=== PATIENT | female | born 1985 | race Caucasian/White ===

== ENCOUNTER → 2016-06-17 15:09 | Emergency (ER) | payer OTHER ==
[~2016-06-17 15:09] MED LIST: ADVAIR 2501 DISK W/D PO; ALBUTEROL17 GM INH; AMOXIL500 MG PO; BACTRIM DS TABL1 TA1 PO; BACTRIM DS TABL1 TAB PO; CIPRO PO; COLACE PO; FLEXERIL10 MG PO; HYCODAN60 ML 5MG/ PO; KEFLEX500 MG PO; LIDOCAINE VISCOU1 ML EXT; LIDODERM30 EA TOP; MACROBID100 MG PO; NEURONTIN PO; ORUDIS75 M1 PO; PARAFON FORTE500 MG PO; PHENERGAN PO; PHENERGAN25 MG PO; PRENATAL1 TA1 PO; PRILOSEC PO; PRINCIPEN500 M1 PO; PROVENTIL17 GM IH; PROZAC40 MG PO; PYRIDIUM PO; ULTRAM PO; VIBRAMYCIN100 M1 PO; VOLTAREN50 MG PO; VOLTAREN75 MG PO; ZANTAC150 MG PO; ZANTAC300 MG PO; ZITHROMAX1 G/PKT PO; ZOFRAN PO; ZOFRAN8 MG PO
== END | disposition left against medical advice (07) ==
LOC: CED 15:09
DX: Z53.21 Procedure and treatment not carried out due to patient leaving prior to being seen by health care provider (principal)

== ENCOUNTER 2016-09-20 15:20 | Emergency (ER) | payer OTHER | END 2016-09-20 16:33 | disposition home or self-care (01) | LOC: CED 15:20 | DX: G40.909 Epilepsy, unspecified, not intractable, without status epilepticus (principal); J45.909 Unspecified asthma, uncomplicated; F17.200 Nicotine dependence, unspecified, uncomplicated; Z91.040 Latex allergy status; Z88.8 Allergy status to other drugs, medicaments and biological substances | CPT/HCPCS: 99284 ==

== ENCOUNTER 2016-10-16 13:25 | Inpatient (IN) | payer OTHER ==
--- NOTE | ~2016-10-16 | A ---
[facility] Nutrition Therapy DATE: 10/17/16 Patient: ELAINE OATES Physician: INES Address: HOMELESS PER PT Room/Bed: [address], Zip: [place] [address] Admit Date: 10/16/16 Date of : [birth year] Height: 5 6 Weight: 132 59.87 NUTRITIONAL ASSESSMENT: REASON: NPO IN ICU ASSESSMENT PT IS 31 Y.O. FEMALE ADMITTED FOR FOUND DOWN AFTER HEROIN ABUSE. ?GI BLEED, ACUTE RESPIRATORY FAILURE, ASPIRATION PNA PMH: ETOH ABUSE, DRUG ABUSE, HEPATITIS C, SEIZURE DISORDER Anthropometrics: 5'6", WT: 132# (60 KG), BMI: 21.3, 101%IBW Labs: GLU: 155, BUN: 32, CREAT: 1.9, CA+:6.1, ALB: 2.4, AST: 258, ALT: 127 Meds: LEVOPHED, PROTONIX, NACL, D5% I/O & Bowel function: 2665/795 Skin Integrity: NG TUBE TO LWS, NO SKIN ISSUES Estimated Nutrition Needs: 3339-2584 KCAL (25-30 KCAL/KG BW) 72-90 G PRO (1.2-1.5 G PRO/ KG BW) FLUIDS CONSISTENT W/KCAL NEEDS OR MANAGE PER MD Assessment: CHART REVIEWED AND EVENTS NOTED. PT SEEN FOR NPO IN ICU ASSESSMENT. PT CURRENTLY INTUBATED AT TIME OF VISIT. NO FAMILY IN ROOM AT THIS TIME. PER RN AND CHART, PT FOUND DOWN AT HOME UNRESPONSIVE. NO CURRENT PLANS IN PLACE TO BEGIN ALTERNATIVE NUTRITION SUPPORT AT THIS TIME. PER CHART, ?ANOXIC BRAIN INJURY, POOR PROGNOSIS NOTED. RD TO REMAIN AVAILABLE. PT NOT APPROPRIATE FOR DIET EDUCATION AT THIS VISIT. Dx: INADEQUATE ORAL INTAKE R/T CURRENT DIAGNOSIS, VENT DEPENDENCE AEB NPO STATUS. Intervention: 1. NPO Monitoring, Evaluation and Goals: 1. ENTERAL NUTRITION; ONCE INITIATED, PROVIDE >80% TOTAL VOLUME AT GOAL 2. WEIGHTS; PROMOTE WEIGHT MAINTENANCE 3. LABS; WNL 4. GI; PROMOTE REGULAR GI FUNCTION MONITOR: -WEIGHTS -PLANS FOR SUPPORT [facility] Nutrition Therapy DATE: 10/17/16 Patient: ELAINE OATES Physician: INES Address: HOMELESS PER PT Room/Bed: [address], Zip: [place] [address] Admit Date: 10/16/16 Date of : [birth year] Height: 5 6 Weight: 132 59.87 -LABS -EXTUBATION? Recommendations: 1. ONCE MEDICALLY FEASIBLE AND PT EXTUBATED, ADVANCE DIET PER PROJECT ANALYST + REGULAR DIET 2. IF PT REMAINS INTUBATED >24 HOURS, BEGIN ALTERNATIVE NUTRITION SUPPORT OF JEVITY 1.5 @ 20 ML/HR, ADVANCE 10 ML q 6 HOURS TO GOAL RATE OF 50 ML/HR -PROVIDES 1800 KCAL, 77 G PRO, 912 ML FREE H20 ADD FREE H20 FLUSHES OF 220 ML QID TO MEET PT'S CURRENT ESTIMATED FLUID NEEDS PER MD RD WILL F/U PER PROTOCOL PT IS SEVERELY COMPROMISED Respectfully, REESE MCKEON MS, RD, LD Food and Nutritional Services [facility] cc: client file
--- NOTE | ~2016-10-16 | DS ---
Unit #: [id number] #: [id number] Patient: ELAINE OATES [id number] [address] [address] [id number] I MR#: [id number] NAME: ELAINE OATES ROOM: [facility] Age: 31 Sex: F Admission Date: 10/16/2016 : 1985 Discharge Date: 10/18/2016 Attending Physician: Sharad Cali M.D. Primary Care Physician: No Primary Care Physician DISCHARGE SUMMARY SUMMARY DATE OF 10/17/2016 TIME OF 22:47 PRIMARY DIAGNOSIS Resuscitated cardiac arrest, found asystole by EMS team. SECONDARY DIAGNOSES 1. Apparent opiate overdose with IV heroin. 2. Septic shock. 3. Acute hypoxic respiratory failure. 4. Severe anoxic brain injury. 5. Non ST segment elevation myocardial infarction. 6. Hepatitis C. 7. Shock liver. 8. Aspiration pneumonia. 9. Urinary tract infection. 10. Anemia. HOSPITAL COURSE The patient was brought into the hospital after being resuscitated by EMS when being found down in asystole. Patient was placed on pressors and intubated and initial CT scan showed diffuse cerebral edema consistent with severe anoxic brain injury. Patient continued to require norepinephrine drip to keep pressures up and ventilator support for hypoxemic respiratory failure. Was treated with broad spectrum antibiotics. Due to the patient's extremely poor prognosis, due to her neurologic exam, and CT of the brain findings recommendation was made to family for comfort care. The patient was terminally extubated on the evening of 10/17/2016 and was pronounced shortly thereafter. Dictated by... Sharad Cali M.D. GEMMA/kemal TD: 10/19/2016 11:13 Unit #: [id number] #: [id number] Patient: ELAINE OATES JOB #: [id number] DISCHARGE SUMMARY Page 1 of 1 X Sharad Cali MD X DISCHARGE SUMMARY
--- NOTE | ~2016-10-16 | EKG ---
PATIENT: ELAINE OATES UNIT #: [id number] Ventricular Rate: 67 BPM Atrial Rate: 67 BPM P-R Interval: 168 ms QRS Duration: 98 ms Q-T Interval: 518 ms QTC Calculation(Bezet): 547 ms P Durant: 58 degrees Calculated R Durant: 59 degrees Calculated T Durant: 51 degrees Diagnosis Line: Normal sinus rhythm Diagnosis Line: Nonspecific ST abnormality Diagnosis Line: Prolonged QT Diagnosis Line: Abnormal ECG Diagnosis Line: When compared with ECG of 25-JUL-2011 23:39, Diagnosis Line: ST now depressed in Anterior leads Diagnosis Line: T wave inversion no longer evident in Inferior Diagnosis Line: leads Diagnosis Line: QT has lengthened Diagnosis Line: Confirmed by CHAPARRO LEYVA MD ([id number]) on Diagnosis Line: 10/17/2016 11:07:12 AM INTERPRETING MD: OGRDON QUIÑONEZ
--- NOTE | ~2016-10-16 | CT71 ---
[facility] A Service of [facility] RADIOLOGY TEXT RESULTS PATIENT: ELAINE OATES [facility] [birth year] UNIT #: [id number] AGE: [address]: Sharad Cali MD SEX: F ORDER DR: [id number] [facility] [address] [facility]. [place], [place] [address] [id number] MR#: [id number] Acc #: [id number] NAME: ELAINE OATES. : 1985 SEX: F STUDY DATE/TIME: 10/16/2016 15:39 UNIT: EDIL ROOM: STUDY DESCRIPTION: CT Head Wo Contrast Attending Physician: Merlin Murphy M.D. Ordering Physician: Merlin Murphy M.D. Primary Care Physician: No Primary Care Physician MEDICAL IMAGING REPORT This report is preliminary unless electronic signature is present REVISED REPORT EXAM Head CT without contrast 10/16/2016 HISTORY Patient found down at restaurant after heroin use. Full cardiac arrest, en route to ER today. TECHNIQUE This CT exam was performed with one or more of the following radiation dose reduction techniques: automatic exposure control, adjustment of mA and/or kV according to patient size, and iterative reconstruction. FINDINGS Examination is markedly abnormal. Exam is somewhat limited by patient motion, with resulting artifact. There is diffuse decreased density throughout both cerebral hemispheres with poor ordonez-white junction differentiation characteristic of diffuse brain edema from anoxic brain injury. Findings were immediately called to the ordering clinician at 04:10 p.m. on 10/16/2016. There is no midline shift. No mass is seen. No intra- or extraaxial hemorrhage. Fluid and/or mucosal thickening is seen in the maxillary and ethmoid sinuses. IMPRESSION 1. Markedly abnormal examination demonstrating a decrease in ordonez-white junction differentiation with poor visualization of the sulci, characteristic of diffuse brain edema, presumably due to anoxic brain injury. Clinical correlation is recommended. No midline shift. No intra- or extraaxial fluid collections. 2. Maxillary and ethmoid sinusitis. [facility] A Service of [facility] RADIOLOGY TEXT RESULTS PATIENT: ELAINE OTAES LOCATION: [address] : [birth year] UNIT #: [id number] AGE: [address]: Sharad Cali MD SEX: F ORDER DR: STAT * RESULT Dictated by... Dank Oliva M.D. THIS IS AN ELECTRONICALLY VERIFIED REPORT Dank Oliva M.D. at 10/17/2016 3:43 PM MADDIE/titus TD: 10/16/2016 16:20 JOB #: [id number] CC: Elizabeth/les Please Delete MEDICAL IMAGING REPORT Page 1 of 1 COPY
--- NOTE | ~2016-10-16 | CO ---
Unit #: [id number] #: [id number] Patient: ELAINE OATES [id number] [address] [address] [id number] I MR#: [id number] NAME: ELAINE OATES. ROOM: [facility] Age: 31 Sex: F Admission Date: 10/16/2016 : 1985 Attending Physician: Jose Victoria M.D. Primary Care Physician: No Primary Care Physician CONSULTATION REPORT REASON FOR CONSULTATION Critical care management. CHIEF COMPLAINT 31-year-old female with a past medical history of hepatitis C, drug abuse, found unresponsive, brought in to the emergency room and was given Narcan and two doses of epinephrine and CPR. Patient is currently unresponsive, on a ventilator on high ventilator setting. PAST MEDICAL HISTORY 1. Hepatitis C. 2. Drug overdose. REVIEW OF SYSTEMS Unobtainable. SOCIAL HISTORY Substance abuse, smoker. FAMILY HISTORY Unobtainable. HOME MEDICATIONS Unobtainable. ALLERGIES Clonidine and latex. PHYSICAL EXAMINATION VITAL SIGNS: Temperature 96, pulse 79, respirations 16, blood pressure 110/70. NEUROLOGICAL: Unresponsive. CVS: S1+ S2. RESPIRATIONS: Bilateral mild rhonchi. GI: Nontender, soft. Bowel sounds positive. EXTREMITIES: No edema. DIAGNOSTIC STUDIES IMAGING: CT head shows diffuse anoxic brain injury. LABORATORY: All the labs have been reviewed. ASSESSMENT AND PLAN 1. Acute respiratory failure. Unit #: [id number] #: [id number] Patient: ELAINE OATES 2. Drug overdose. 3. Cardiopulmonary arrest. 4. Shock. 5. Likely aspiration pneumonia. Plan is to admit the patient. Continue current treatment. Prognosis is very poor. Neurology and cardiology consultation recommended. 2D echo, troponin and continue IV fluids. Again, prognosis is very poor. Dictated by... Jade Mayer/fito TD: 10/17/2016 05:27 JOB #: [id number] CONSULTATION REPORT Page 1 of 1 X Roberto Sanders MD CONSULTATION REPORT
--- NOTE | ~2016-10-16 | HP ---
Unit #: [id number] #: [id number] Patient: ELAINE OATES [id number] [address] [address] [id number] I MR#: [id number] NAME: ELAINE OATES. ROOM: 618[address] Age: 31 Sex: F Admission Date: 10/16/2016 : 1985 Attending Physician: Brigid Victoria M.D. HISTORY AND PHYSICAL CHIEF COMPLAINT Found down. HISTORY OF PRESENT ILLNESS The patient is a 31-year-old female with a history of hepatitic C and history of drug abuse brought to the emergency room after being found down. The patient is status post intubation and on sedation and unable to provide any history. The patient's history is obtained by speaking to the ER physician and the nurse at the bedside. The patient was with her boyfriend and was using the drugs. The patient was found down and EMS was called by boyfriend for the unresponsiveness. The patient was found to be in asystole at the scene, status post nasal Narcan and received two doses of epinephrine and CPR. The patient regained circulation in 10 minutes and was intubated at the site. The patient is being admitted for the above reasons. No further history is available. PAST MEDICAL HISTORY 1. Hepatitis C. 2. Drug overdose in the past. SOCIAL HISTORY History of smoking cigarettes half a pack per day, does all kinds of drugs including heroin, and drinks alcohol of unknown quantity. FAMILY HISTORY Unable to obtain. HOME MEDICATIONS None. ALLERGIES Clonidine and latex. REVIEW OF SYSTEMS Unable to obtain. PHYSICAL EXAMINATION GENERAL: Patient is status post intubation and sedation. VITAL SIGNS: Temperature 96.9, pulse 79, respiratory rate 14, blood pressure 62/32, and saturating 99% on ventilator. HEENT: Head atraumatic, normocephalic. Pupils are dilated and nonreacting. NECK: Supple. LUNGS: Coarse breath sounds and decreased air entry at the left base. Unit #: [id number] #: [id number] Patient: ELAINE OATES Positive for rhonchi. HEART: Tachycardic, regular rate. ABDOMEN: Soft. Positive bowel sounds. EXTREMITIES: Positive for (1) and no edema. NEUROLOGIC: Unable to assess as patient has been intubated and sedated. DIAGNOSTIC STUDIES LABORATORY: INR is 1.1. WBC 9.7, hemoglobin 9.6, hematocrit 31.4, and platelets 242,000. Sodium 139, potassium 4.9, chloride 109, bicarb 17, glucose 263, BUN 17, creatinine 1.1, calcium 8.1, AST 121, ALT 55, and albumin 2.5. Blood gas shows pH of 7.02, PCO2 of 47.8, PO2 of 231, and bicarb 12.5. Troponin less than 0.03. CK total 51. Troponin less than 0.05. Troponin positive for 0.15. IMAGING: CT of the head showed markedly abnormal examination demonstrating a decrease in ordonez-white junction differentiation with poor visualization of the sulci characteristic of diffuse brain edema, presumably due to anoxic brain injury. No midline shift and no intra- or extraaxial fluid collection. Maxillary and ethmoid sinusitis. CARDIOLOGY: EKG shows sinus rhythm at a rate of 67 beats per minute, nonspecific ST and T abnormality, QTc of 547, and prolonged QTc. ASSESSMENT 1. Cardiopulmonary arrest. 2. Drug overdose, probably heroin. 3. Anoxic brain injury. 4. Acute respiratory failure. 5. Septic shock. 6. Non-ST elevation myocardial infarction. PLAN Admit the patient as inpatient to ICU. Patient will have Critical Care, Cardiology, and Neurology consults for the above reasons. Patient will be on septic shock protocol. Check the echocardiogram and check the urine drug screen. Patient has a poor prognosis. Further recommendations will follow as more lab results are available. Dictated by Jade Lay/harper TD: 10/16/2016 19:49 JOB #: [id number] HISTORY AND PHYSICAL Page 1 of 1 X BRIGID VICTORIA MD X HISTORY AND PHYSICAL
--- NOTE | ~2016-10-16 | CR72 ---
[facility] A Service of [facility] RADIOLOGY TEXT RESULTS PATIENT: ELAINE OATES LOCATION: [place] [address] : [birth year] UNIT #: [id number] AGE: [address]: Sharad Cali MD SEX: F ORDER DR: [id number] [facility] [address] [facility]. [place], [place] [address] [id number] I MR#: [id number] Acc #: [id number] NAME: ELAINE OATES. : 1985 SEX: F STUDY DATE/TIME: 10/17/2016 4:39 UNIT: [facility] ROOM: [facility] STUDY DESCRIPTION: CR Chest Single View Portable Attending Physician: Sharad Cali M.D. Ordering Physician: Roberto Sanders M.D. Primary Care Physician: No Primary Care Physician MEDICAL IMAGING REPORT This report is preliminary unless electronic signature is present EXAM Portable chest, 10/17. INDICATION Overdose. Ventilator patient. FINDINGS AP portable chest compared with 10/16/2016. ET tube and right IJ line are in good position. Heart size normal. The lungs are hyperinflated. There is continued pneumonia at the right base. Left lung is clear. No definite pneumothorax on either side of the chest. Left apex not completely included in the field of view today. Dictated by... Anson Diaz Jr., M.D. THIS IS AN ELECTRONICALLY VERIFIED REPORT Anson Diaz Jr., M.D. at 10/17/2016 3:48 PM HALINA/kelli TD: 10/17/2016 14:07 JOB #: [id number] MEDICAL IMAGING REPORT Page 1 of 1 COPY
--- NOTE | ~2016-10-16 | CR72 ---
[facility] A Service of [facility] RADIOLOGY TEXT RESULTS PATIENT: ELAINE OATES LOCATION: [address] : [birth year] UNIT #: [id number] AGE: [address]: Sharad Cali MD SEX: F ORDER DR: [id number] [facility] [address] [place], [place] [address] [id number] I MR#: [id number] Acc #: [id number] NAME: ELAINE OATES. : 1985 SEX: F STUDY DATE/TIME: 10/16/2016 16:10 [facility]: [facility] STUDY DESCRIPTION: CR Chest Single View Portable Attending Physician: Jose Victoria M.D. Ordering Physician: Merlin Murphy M.D. Primary Care Physician: Primary Care Physician No MEDICAL IMAGING REPORT This report is preliminary unless electronic signature is present EXAM Portable chest HISTORY Low oxygen saturation. ETT placement. Heroin overdose today. FINDINGS ETT tip is 8 cm above the temi. New patchy infiltrate in the right lung base compared to earlier today is concerning for aspiration. The remainder of the visualized lungs are clear. The superior lung apices are partly excluded. Right IJ central line tip in the mid SVC. Dictated by... Anuj Viera M.D. THIS IS AN ELECTRONICALLY VERIFIED REPORT Anuj Viera M.D. at 10/17/2016 5:35 PM LIVIA/parag TD: 10/17/2016 04:29 JOB #: [id number] MEDICAL IMAGING REPORT Page 1 of 1 COPY
--- NOTE | ~2016-10-16 | CR71 ---
[facility] A Service of [facility] RADIOLOGY TEXT RESULTS PATIENT: ELAINE OATES LOCATION: [place] [address] : [birth year] UNIT #: [id number] AGE: [address]: Sharad Cali MD SEX: F ORDER DR: [id number] [facility] [address] [facility]. [place], [place] [address] [id number] I MR#: [id number] Acc #: [id number] NAME: ELAINE OATES. : 1985 SEX: F STUDY DATE/TIME: 10/16/2016 14:16 UNIT: [facility] ROOM: [facility] STUDY DESCRIPTION: CR Chest Single View Attending Physician: Jose Victoria M.D. Ordering Physician: Merlin Murhpy M.D. Primary Care Physician: Primary Care Physician No MEDICAL IMAGING REPORT This report is preliminary unless electronic signature is present EXAM Portable chest, 10/16/2016 HISTORY Respiratory failure status post arrest today. Heroin overdose, short of breath. FINDINGS The heart is normal in size. Endotracheal tube has been inserted with the tip approximately 4 cm above the temi. Right internal jugular central line tip is in the superior vena cava. Poor inspiratory result and elevation of the left hemidiaphragm with atelectasis or infiltrate left lower lobe. Lungs are otherwise clear. Large amount of gas is noted within the stomach. IMPRESSION 1. Endotracheal tube tip is approximately 4 cm above the temi. Right internal jugular central line tip SVC. No pneumothorax. 2. Elevation left hemidiaphragm with atelectasis or infiltrate left lower lobe. 3. Large amount of gas within the stomach. Dictated by... Dank Oliva M.D. THIS IS AN ELECTRONICALLY VERIFIED REPORT Dank Oliva M.D. at 10/17/2016 2:09 PM MADDIE/parag TD: 10/17/2016 02:07 JOB #: [id number] [facility] A Service of [facility] RADIOLOGY TEXT RESULTS PATIENT: ELAINE OATES LOCATION: [facility] : [birth year] UNIT #: [id number] AGE: [address]: Sharad Cali MD SEX: F ORDER DR: MEDICAL IMAGING REPORT Page 1 of 1 COPY
--- NOTE | ~2016-10-16 | CO ---
Unit #: [id number] #: [id number] Patient: ELAINE OATES [id number] [facility] [address] [facility]. [place], [place] [address] [id number] MR#: [id number] NAME: ELAINE OATES ROOM: [facility] Age: 31 Sex: F Admission Date: 10/16/2016 : 1985 Attending Physician: Sharad Cali M.D. Consultation Date: 10/17/2016 CONSULTATION REPORT REASON FOR CONSULTATION Hypoxic and anoxic encephalopathy. PATIENT IDENTIFICATION This is a 31-year-old apparently right-handed, white female, who is evaluated in room ICU bed 4 at [facility]. SOURCE OF INFORMATION The medical records. PROBLEM LIST 1. Right now likely hypoxic and anoxic encephalopathy. 2. Respiratory failure. 3. She has history of hepatitis C. 4. History of known drug abuse. HISTORY OF PRESENT ILLNESS This patient came yesterday afternoon after she was found down, apparently someone, probably a boyfriend called EMS and it is documented that she was using drugs and she collapsed and EMS was called and they came at the scene and she was found to have asystole at the scene. She was given nasal Narcan and received two doses of epinephrine and CPR. Regained circulation in about 10 minutes. She was intubated and admitted to the hospital. Since being in the hospital, she has been unresponsive. She has blown pupil and no corneals. She has essentially Gurwinder Coma Scale of 2T. There may have been some breathing earlier, but when I saw her around 2:00 p.m., there was no cough or gag or responses of any kind and no breathing over the vent. Her urine drug screen is positive for opioids. Expense Analyst, Dr. Sanders is on the case. No history of seizures. Her head CT shows significant abnormality specifically loss of ordonez-white. No myoclonus or other activity. Unit #: [id number] #: [id number] Patient: ELAINE OATES PAST MEDICAL HISTORY As discussed above. PAST SURGICAL HISTORY Nothing known to me. ALLERGIES Apparently, clonidine and latex. HOME MEDICATIONS Apparently, none. FAMILY HISTORY Unable to be obtained. SOCIAL HISTORY The patient apparently is a smoker, and as per the records that she does all kind of drugs including heroin and drinks alcohol of unknown quantity. REVIEW OF SYSTEMS Could not be obtained. PHYSICAL EXAMINATION VITAL SIGNS: Temperature is 101.3. I believe T-max was reported to be 103, it is not documented yet. Pulse is 135, respirations 28, blood pressure was 122/73 last documented, but it has been much lower since then. No pain was reported. O2 saturations were 99%. Weight of 131 pounds. BMI was 21. NEUROLOGIC: The patient is essentially in coma. Gurwinder Coma Scale of 2T. Cranial nerve examination, she has no response to visual threats. No pupillary responses. Pupils dilated. No corneals. No doll eyes. No responses with cold calorics. I did not see any facial asymmetry. Hearing is questionable. Tongue was midline. I could not visualize the oropharynx or uvula. No head turning was seen. Motor examination, no responses of any kind were seen. Sensory examination, no responses of any kind were seen. I could not get any reflexes. Toes are mute. Gait and coordination could not be evaluated. DIAGNOSTIC STUDIES LABORATORY RESULTS: When she came in, her pH was 7.027, it went down to 6.98. Her pCO2 was 47, it went up to as much as 62, pO2 initially was 231. Her random glucose was 263, it is 155; BUN is now 32; creatinine is now 1.9; albumin is 2.4; alkaline phosphatase went from 68 to 109; AST went from 121 to 258; ALT went from 55 to 127. Lactic acid was 5.2. Urine drug screen positive for opioids. White count was 19.6, H and H of 13.4 and 42.1, platelet count was 265. IMPRESSION Likely hypoxic and anoxic encephalopathy, very poor prognosis. Unit #: [id number] #: [id number] Patient: ELAINE OATES Clinically, she is brain , though the concern is she had overdosed but she still 24 hours after the overdose and opioids. I did a clinical brain examination and there are no responses of any kind. Confirmatory test may be needed. She has 0/3 eye signs. She has Parker coma Scale of 2T. Nothing suggesting seizure or status. This is a very very poor prognostic picture. I have discussed with Dr. Cali. Family members are not available. If there is any other question, please let me know. Nothing else to offer except for supporting care and I will be following her over time and see how things go. Dictated by... Jade Escoto/sheldon TD: 10/18/2016 06:16 JOB #: [id number] CONSULTATION REPORT Page 1 of 1 X Erik Caicedo MD X CONSULTATION REPORT
[2016-10-16 14:13] LABS: BASOPHIL# 0.1 X10e3 (0-0.3); BASOPHIL% 0.8 % (0-2.5); EOSINOPHIL# 0.1 X10e3 (0-0.7); EOSINOPHIL% 1.4 % (0.0-7.0); HEMATOCRIT 31.4 % (35.0-45.0); HEMOGLOBIN 9.6 gm/dL (12.0-16.0); LYMPHOCYTE# 6.5 X10e3 (1.0-3.5); LYMPHOCYTE% 67.1 % (17.0-45.0); MEAN CELL VOLUME 93.6 FL (83-96); MEAN CORPUSCULAR HEMOGLOBIN 28.6 PG (28-34); MEAN CORPUSCULAR HGB CONC 30.6 g/dL (30-36); MEAN PLATELET VOLUME 9.6 FL (6.5-11.5); MONOCYTE# 0.3 X10e3 (0-1.0); MONOCYTE% 2.7 % (3.0-12.0); NEUTROPHIL# 2.7 X10e3 (1.5-7.1); PLATELET COUNT 242 X10e3 (140-420); RED BLOOD COUNT 3.36 X10e (3.90-5.30); RED CELL DISTRIBUTION WIDTH 15.2 % (11.0-15.5); WHITE BLOOD COUNT 9.7 X10e3 (4.0-10.5)
[2016-10-16 14:17] LABS: DIFF IND YES
[2016-10-16 14:24] LABS: INR 1.1; PARTIAL THROMBOPLASTIN TIME 41.2 SECONDS (23.5-31.3); PROTHROMBIN TIME (PATIENT) 11.8 SECONDS (10.0-11.7)
[2016-10-16 14:35] LABS: BURR CELLS PRESENT; POIKILOCYTOSIS MOD
[2016-10-16 14:36] LABS: PLATELET ESTIMATE NORMAL (NORMAL)
[2016-10-16 14:37] LABS: ANISOCYTOSIS SL; SMUDGE CELLS 5 /100
[2016-10-16 14:39] LABS: ALBUMIN SERUM 2.5 g/dL (3.5-5.0); BILIRUBIN, DIRECT 0.1 mg/dL (0.0-0.2); BILIRUBIN,INDIRECT 0.3 mg/dL (0.0-0.9); BILIRUBIN,TOTAL 0.4 mg/dL (0.2-2.0); BUN/CREATININE RATIO 15.45; CALCIUM SERUM 8.1 mg/dL (8.4-10.2); CREATININE SERUM 1.1 mg/dL (0.6-1.4); GLOM FILT RATE Estimated 66.4 mL/min (>60); POTASSIUM 4.9 mmol/L (3.5-5.1); PROTEIN TOTAL SERUM 5.1 g/dL (6.0-8.3)
[2016-10-16 14:53] LABS: ARTERIAL BLD GAS O2 SATURATION 96.8 % (90.0-100.0); ARTERIAL BLOOD GAS CARBOXY HB 0.8 %sat (0.0-9.0); ARTERIAL BLOOD GAS HCO3 12.5 mmol/L; ARTERIAL BLOOD GAS MET HB 1.3 %sat (0.0-2.0); ARTERIAL BLOOD GAS PCO2 47.8 mmHg (35.0-45.0)
[2016-10-16 14:54] LABS: ARTERIAL BLOOD GAS ALLEN TEST NORMAL; ARTERIAL BLOOD GAS pH 7.027 (7.350-7.450); ARTERIAL DRAW? YES
[2016-10-16 14:55] LABS: ARTERIAL BLOOD GAS ART SITE RIGHT RADIAL; ARTERIAL BLOOD GAS DELIVERY VENT; ARTERIAL BLOOD GAS VENT MODE AC
[2016-10-16 15:06] LABS: CK TOTAL 51 IU/L (26-140)
[2016-10-16 15:17] LABS: POC - TROPONIN <0.05 ng/mL (<=0.05)
[2016-10-16 17:08] LABS: POC - CKMB 41.6 ng/mL (0.0-7.9); POC - TROPONIN 0.15 ng/mL (<=0.05)
[2016-10-16 17:43] LABS: ARTERIAL BLD GAS O2 SATURATION 95.4 % (90.0-100.0); ARTERIAL BLOOD GAS CARBOXY HB 0.1 %sat (0.0-9.0); ARTERIAL BLOOD GAS HCO3 15.8 mmol/L; ARTERIAL BLOOD GAS MET HB 0.8 %sat (0.0-2.0)
[2016-10-16 17:46] LABS: ARTERIAL BLOOD GAS ALLEN TEST NORMAL; ARTERIAL BLOOD GAS ART SITE RIGHT RADIAL; ARTERIAL BLOOD GAS DELIVERY VENT; ARTERIAL BLOOD GAS PCO2 60.2 mmHg (35.0-45.0); ARTERIAL BLOOD GAS VENT MODE AC; ARTERIAL BLOOD GAS pH 7.028 (7.350-7.450); ARTERIAL DRAW? YES
[2016-10-16 18:37] LABS: URINE SOURCE CLEAN CATCH
[2016-10-16 18:52] LABS: URINE APPEARANCE CLEAR; URINE BILIRUBIN NEG (NEG); URINE BLOOD 2+ (NEG); URINE COLOR YELLOW; URINE GLUCOSE 250 MG/DL (NEG); URINE KETONE NEG (NEG); URINE LEUKOCYTE ESTERASE NEG (NEG); URINE NITRATE NEG (NEG); URINE PROTEIN 2+ (NEG); URINE SPECIFIC GRAVITY 1.008 (1.003-1.035); URINE UROBILINOGEN 0.2 MG/DL (NEG)
[2016-10-16 18:54] LABS: CULTURE INDICATED? YES; U HYALINE CASTS AUWI 0-2 /[LPF]; URBCS1 AUWI 0-2 /[HPF] (0-2); URINE BACTERIA AUWI 1+ (NEGATIVE); URINE SQUAMOUS EPITHELIAL CELL NONE SEEN /[HPF]; UWBCS1 AUWI 25-50 (0-5)
[2016-10-16 19:01] LABS: AMPHETAMINE NEG (NEG); BARBITURATES NEG (NEG); BENZODIAZEPINES NEG (NEG); COCAINE NEG (NEG); MARIJUANA NEG (NEG); OPIATES POS (NEG); TRICYCLIC ANTIDEPRESSANTS NEG (NEG); U METHADONE NEG (NEG)
[2016-10-17 04:34] LABS: ARTERIAL BLD GAS O2 SATURATION 98.7 % (90.0-100.0); ARTERIAL BLOOD GAS HCO3 14.6 mmol/L; ARTERIAL BLOOD GAS MET HB 1.1 %sat (0.0-2.0)
[2016-10-17 04:37] LABS: ARTERIAL BLOOD GAS PCO2 61.8 mmHg (35.0-45.0); ARTERIAL BLOOD GAS pH 6.982 (7.350-7.450)
[2016-10-17 04:38] LABS: ARTERIAL BLOOD GAS ART SITE RIGHT FEMORAL; ARTERIAL BLOOD GAS DELIVERY VENT; ARTERIAL BLOOD GAS VENT MODE AC; ARTERIAL DRAW? YES
[2016-10-17 04:42] LABS: ALBUMIN SERUM 2.4 g/dL (3.5-5.0); BILIRUBIN,TOTAL 0.4 mg/dL (0.2-2.0); BUN/CREATININE RATIO 16.84; CALCIUM SERUM 6.1 mg/dL (8.4-10.2); CREATININE SERUM 1.9 mg/dL (0.6-1.4); GLOM FILT RATE Estimated 34.3 mL/min (>60); POTASSIUM 4.8 mmol/L (3.5-5.1); PROTEIN TOTAL SERUM 5.2 g/dL (6.0-8.3)
[2016-10-17 07:21] LABS: ARTERIAL BLD GAS O2 SATURATION 98.3 % (90.0-100.0)
[2016-10-17 07:22] LABS: ARTERIAL BLOOD GAS ALLEN TEST N; ARTERIAL BLOOD GAS ART SITE RIGHT RADIAL; ARTERIAL BLOOD GAS DELIVERY VENT; ARTERIAL BLOOD GAS VENT MODE AC; ARTERIAL BLOOD GAS pH 7.159 (7.350-7.450); ARTERIAL DRAW? YES
[2016-10-17 10:37] LABS: BASOPHIL% 0.1 % (0-2.5); HEMATOCRIT 42.1 % (35.0-45.0); LYMPHOCYTE% 5.2 % (17.0-45.0); MEAN CORPUSCULAR HGB CONC 31.8 g/dL (30-36); MEAN PLATELET VOLUME 8.9 FL (6.5-11.5); MONOCYTE# 1.2 X10e3 (0-1.0); MONOCYTE% 5.9 % (3.0-12.0); NEUTROPHIL# 17.4 X10e3 (1.5-7.1); NEUTROPHIL% 88.8 % (40-75); PLATELET COUNT 265 X10e3 (140-420); RED BLOOD COUNT 4.78 X10e (3.90-5.30); RED CELL DISTRIBUTION WIDTH 14.7 % (11.0-15.5)
[2016-10-17 11:05] LABS: WHITE BLOOD COUNT 19.6 X10e3 (4.0-10.5)
[2016-10-17 11:06] LABS: DIFF IND YES; HEMOGLOBIN 13.4 gm/dL (12.0-16.0)
[2016-10-17 11:20] LABS: ANISOCYTOSIS SL; PLATELET ESTIMATE NORMAL (NORMAL)
[2016-10-17 11:40] LABS: ARTERIAL BLD GAS O2 SATURATION 96.5 % (90.0-100.0); ARTERIAL BLOOD GAS CARBOXY HB 0.1 %sat (0.0-9.0); ARTERIAL BLOOD GAS HCO3 22.6 mmol/L; ARTERIAL BLOOD GAS MET HB 1.1 %sat (0.0-2.0); ARTERIAL BLOOD GAS PCO2 49.8 mmHg (35.0-45.0); ARTERIAL BLOOD GAS PO2 95.6 mmHg (80.0-100); ARTERIAL BLOOD GAS pH 7.264 (7.350-7.450)
[2016-10-17 11:41] LABS: ARTERIAL BLOOD GAS ALLEN TEST NORMAL; ARTERIAL BLOOD GAS ART SITE RIGHT RADIAL; ARTERIAL BLOOD GAS DELIVERY VENT; ARTERIAL BLOOD GAS VENT MODE AC; ARTERIAL DRAW? YES
[2016-10-17 15:44] LABS: ALBUMIN SERUM 2.3 g/dL (3.5-5.0); BILIRUBIN,TOTAL 0.5 mg/dL (0.2-2.0); BUN/CREATININE RATIO 13.71; CREATININE SERUM 3.5 mg/dL (0.6-1.4); GLOM FILT RATE Estimated 16.4 mL/min (>60); POTASSIUM 4.5 mmol/L (3.5-5.1); PROTEIN TOTAL SERUM 5.1 g/dL (6.0-8.3)
[2016-10-17 15:53] LABS: CALCIUM SERUM 5.8 mg/dL (8.4-10.2)
[2016-10-17 16:12] LABS: AMPHETAMINE POS (NEG); BARBITURATES NEG (NEG); BENZODIAZEPINES POS (NEG); COCAINE NEG (NEG); MARIJUANA NEG (NEG); OPIATES POS (NEG); TRICYCLIC ANTIDEPRESSANTS NEG (NEG); U METHADONE NEG (NEG)
[2016-10-20 21:27] LABS: HA AB IGM (HEPPAN) Nonreactive (()); HB CORE AB IGM (HEPPAN) Nonreactive (Nonreactive); HB S AG (HEPPAN) Nonreactive (Nonreactive); HEP C AB (HEPPAN) Reactive (Nonreactive)
== END 2016-10-18 00:37 | DRG 917 ==
LOC: CED 13:25 → CEDOF 17:10 → CED 18:14 → CICCU2 22:25 → CEDOF 22:25 → CICCU2 22:25
PROVIDERS: Emergency Medicine; Internal Medicine
PROC: 0BH17EZ Insertion of Endotracheal Airway into Trachea, Via Natural or Artificial Opening (ICD-10-PCS; principal; 2016-10-16)
PROC: 5A1945Z Respiratory Ventilation, 24-96 Consecutive Hours (ICD-10-PCS; 2016-10-16)
PROC: 05HM33Z Insertion of Infusion Device into Right Internal Jugular Vein, Percutaneous Approach (ICD-10-PCS; 2016-10-16)
PROC: B246YZZ Ultrasonography of Right and Left Heart using Other Contrast (ICD-10-PCS; 2016-10-17)
DX: T40.1X1A Poisoning by heroin, accidental (unintentional), initial encounter (principal); A41.9 Sepsis, unspecified organism; J96.01 Acute respiratory failure with hypoxia; I46.9 Cardiac arrest, cause unspecified; K72.00 Acute and subacute hepatic failure without coma; I21.4 Non-ST elevation (NSTEMI) myocardial infarction; G93.1 Anoxic brain damage, not elsewhere classified; J69.0 Pneumonitis due to inhalation of food and vomit; R65.21 Severe sepsis with septic shock; N39.0 Urinary tract infection, site not specified; F11.10 Opioid abuse, uncomplicated; D64.9 Anemia, unspecified; B19.20 Unspecified viral hepatitis C without hepatic coma; F17.210 Nicotine dependence, cigarettes, uncomplicated; Z88.8 Allergy status to other drugs, medicaments and biological substances; Z91.040 Latex allergy status; Z51.5 Encounter for palliative care
CPT/HCPCS: 36556; 36600; 70450; 71010; 80048; 80053; 80074; 80076; 80307; 81003; 82550; 82553; 82803; 83605; 84484; 85025; 85610; 85730; 86850; 86900; 86901; 87040; 87086; 87522; 93005; 93306; 94002; 94760; 96361; 96365; 96366; 96375; 99291; C9113; J0171; J1650; J1956; J2543; J7060